=== PATIENT | male | born 1965 | race Caucasian/White ===

== ENCOUNTER 2024-03-05 17:32 | Inpatient (IN) | payer MEDICAID ==
[~2024-03-05] VITALS: Ht 182.9 cm; Wt 90.3 kg
[2024-03-05 17:33] VITALS: BP_SYST 128; PULSE 98; RESP 18; TEMP 98.4; O2SAT 100
[2024-03-05 19:49] LABS: EOSINOPHILS # (AUTO) 0.2 K/uL (0.0-0.4); HEMOGLOBIN 10.2 g/dL (14.0-18.0)
[2024-03-05 19:55] LABS: BASOPHILS # (AUTO) 0.1 K/uL (0.0-0.2); BASOPHILS % (AUTO) 1.7 % (0.0-2.0); EOSINOPHILS % (AUTO) 2.2 % (0.0-4.0); HEMATOCRIT 29.9 % (36-54); LYMPHOCYTES # (AUTO) 1.9 K/uL (1.0-5.5); LYMPHOCYTES % (AUTO) 22.5 % (20.5-51.5); MEAN CORPUSCULAR HEMOGLOBIN 31 pg (27-31); MEAN CORPUSCULAR HGB CONC 34 % (32-36); MEAN CORPUSCULAR VOLUME 91 fL (79.0-98.0); MONOCYTES # (AUTO) 0.8 K/uL (0.0-1.0); MONOCYTES % (AUTO) 9.4 % (1.7-9.3); NEUTROPHILS # (AUTO) 5.4 K/uL (1.8-7.7); NEUTROPHILS % (AUTO) 64.2 % (40.0-70.0); PLATELET COUNT (AUTO) 397 K/uL (130-430); RED CELL DISTRIBUTION WIDTH 14.6 % (9.0-15.0); WHITE BLOOD COUNT (AUTO) 8.5 K/uL (4.8-10.8)
[2024-03-05 19:57] LABS: ALANINE AMINOTRANSFERASE 36 U/L (12-78); ALBUMIN 3.1 g/dL (3.4-4.8); ANION GAP 8 (5-15); ASPARTATE AMINOTRANSFERASE 45 U/L (10-37); CALCIUM 8.8 mg/dL (8.4-11.0); CARBON DIOXIDE 29 mmol/L (23-29); CHLORIDE 97 mmol/L (98-107); CREATININE 0.98 mg/dL (0.55-1.30); GFR AFRICAN AMERICAN 100 mL/min (>90); GFR NON AFRICAN-AMERICAN 83 mL/min (>90); GLUCOSE 119 mg/dL (74-106); SODIUM SERUM 134 mmol/L (136-145); TOTAL BILIRUBIN 1.2 mg/dL (0.0-1.0); UREA NITROGEN, BLOOD 13 mg/dL (8-21)
[2024-03-05 19:59] LABS: BILIRUBIN,DIRECT 0.3 mg/dL (0.0-0.3); LIPASE 43 U/L (16-77)
[2024-03-05 20:23] LABS: BLOOD, URINE NEGATIVE (NEGATIVE); CLARITY/URINE CLEAR (CLEAR); GLUCOSE,URINE NEGATIVE (NEGATIVE); KETONES,URINE NEGATIVE (NEGATIVE); NITRITE, URINE NEGATIVE (NEGATIVE); PROTEIN URINE 1+ (NEGATIVE)
[2024-03-05 20:30] LABS: BILIRUBIN,URINE 1+ (NEGATIVE); COLOR,URINE AMBER (YELLOW); LEUKOCYTE ESTERASE ,URINE NEGATIVE (NEGATIVE); RBC,URINE NONE SEEN /HPF (0-3); WBC,URINE 0-3 /HPF (0-3)
[2024-03-05 20:31] LABS: BACTERIA,URINE FEW /HPF (None Seen); MUCUS,URINE 2+ /LPF (None Seen)
[2024-03-05] MEDS: KETOROLAC TROMETHAMINE 15 MG VIAL IVP ONE (21:14)
[2024-03-05] MEDS: PIPERACILLIN/TAZO 4.5 GM in NS 100 ML IV ONE (23:05)
[2024-03-05] MEDS ORDERED: PIPERACILLIN/TAZOBACTAM 4.5 GM/VIAL (ZOSYN) IV ONE (23:06)
[2024-03-06] MEDS ORDERED: LIDOCAINE 1%, 20 ML MDV 20 ML ONE (06:44)
[2024-03-06] MEDS ORDERED: TRAM50TA2 PO (07:03)
[2024-03-06] MEDS: LIDOCAINE 1% 10 MG/ML, 20 ML MDV INJ ONE (07:17)
[2024-03-06] MEDS: BACITRACIN 1 GM OINT TP ONE (07:18)
[2024-03-06] MEDS ORDERED: ACETAMINOPHEN 325 MG TABLET PO PRN ×2 (08:45→09:30)
[2024-03-06] MEDS ORDERED: SENN8.6T19 PO (09:35)
[2024-03-06] MEDS ORDERED: NEU300 PO (09:35)
[2024-03-06] MEDS ORDERED: SER25 PO (09:35)
[2024-03-06] MEDS ORDERED: MELA5TAB21 PO (09:35)
[2024-03-06] MEDS ORDERED: ACET325T PO (09:35)
[2024-03-06] MEDS ORDERED: FAMO20TA8 PO (09:35)
[2024-03-06 09:58] VITALS: BP_SYST 103; PULSE 89; RESP 18; TEMP 98.7
[2024-03-06] MEDS: MORPHINE 4 MG INJ. 4 MG/ML VIAL IVP PRN (10:47)
[2024-03-06 10:51] VITALS: O2SAT 95
[2024-03-06 15:14] VITALS: BP_SYST 121; PULSE 101; RESP 16; TEMP 97.9; O2SAT 98
[2024-03-06] MEDS: HYDROcodone/ACETAMIN 5-325 MG TAB (NORCO/ VICODIN) PO PRN (15:54)
[2024-03-06 20:00] VITALS: BP_SYST 130; PULSE 64; RESP 18; TEMP 97.2; O2SAT 98
[2024-03-06] MEDS: MELATONIN 5 MG TABLET PO SCH (20:09)
[2024-03-06] MEDS: QUEtiapine FUMARATE 25 MG TABLET PO SCH (20:09)
[2024-03-07] VITALS: BP_SYST 129; PULSE 74; RESP 18; TEMP 97.4; O2SAT 98
[2024-03-07 06:20] LABS: BASOPHILS # (AUTO) 0.1 K/uL (0.0-0.2); BASOPHILS % (AUTO) 1.5 % (0.0-2.0); EOSINOPHILS # (AUTO) 0.4 K/uL (0.0-0.4); EOSINOPHILS % (AUTO) 5.9 % (0.0-4.0); HEMATOCRIT 28.9 % (36-54); HEMOGLOBIN 9.7 g/dL (14.0-18.0); LYMPHOCYTES # (AUTO) 1.5 K/uL (1.0-5.5); LYMPHOCYTES % (AUTO) 24.2 % (20.5-51.5); MEAN CORPUSCULAR HEMOGLOBIN 30 pg (27-31); MEAN CORPUSCULAR HGB CONC 34 % (32-36); MEAN CORPUSCULAR VOLUME 91 fL (79.0-98.0); MONOCYTES # (AUTO) 0.6 K/uL (0.0-1.0); MONOCYTES % (AUTO) 8.8 % (1.7-9.3); NEUTROPHILS # (AUTO) 3.8 K/uL (1.8-7.7); NEUTROPHILS % (AUTO) 59.6 % (40.0-70.0); PLATELET COUNT (AUTO) 323 K/uL (130-430); RED BLOOD CELL COUNT(AUTO) 3.19 MIL/uL (4.2-6.2); RED CELL DISTRIBUTION WIDTH 14.4 % (9.0-15.0); WHITE BLOOD COUNT (AUTO) 6.4 K/uL (4.8-10.8)
[2024-03-07 06:58] LABS: ALBUMIN 2.8 g/dL (3.4-4.8); CALCIUM 8.5 mg/dL (8.4-11.0); CREATININE 0.94 mg/dL (0.55-1.30); POTASSIUM 3.7 mmol/L (3.5-5.1); TOTAL BILIRUBIN 0.8 mg/dL (0.0-1.0); TOTAL PROTEIN, SERUM 6.7 g/dL (6.4-8.3)
[2024-03-07 08:49] VITALS: O2SAT 100
[2024-03-07 08:55] VITALS: BP_SYST 123; PULSE 98; RESP 14; TEMP 97.7; O2SAT 100
[2024-03-07] MEDS ORDERED: HYDR-3927 PO (10:11)
[2024-03-07] MEDS ORDERED: AMOX-423 PO (11:00)
[2024-03-07 11:14] VITALS: BP_SYST 129; PULSE 87; RESP 18; TEMP 99; O2SAT 97
[2024-03-07 13:18] VITALS: BP_SYST 115; PULSE 77; RESP 18; TEMP 98.7; O2SAT 96
[2024-03-07 16:02] VITALS: BP_SYST 130; PULSE 80; RESP 18; TEMP 98.7; O2SAT 96
[2024-03-14] MEDS ORDERED: HYDR-3917 PO (17:14)
== END 2024-03-07 18:04 | disposition home or self-care (01) | DRG 813 ==
LOC: EDBD → SED 17:32 → EDBD 17:32 → SMU 03-06 08:39
PROVIDERS: ADMIT Family Medicine; ATTEND Family Medicine
DX: I97.648 Postprocedural seroma of a circulatory system organ or structure following other circulatory system procedure (principal); E46 Unspecified protein-calorie malnutrition; E87.1 Hypo-osmolality and hyponatremia; I10 Essential (primary) hypertension; D64.9 Anemia, unspecified; K57.30 Diverticulosis of large intestine without perforation or abscess without bleeding; Y83.8 Other surgical procedures as the cause of abnormal reaction of the patient, or of later complication, without mention of misadventure at the time of the procedure; Z79.899 Other long term (current) drug therapy; Z68.27 Body mass index [BMI] 27.0-27.9, adult; Z59.00 Homelessness unspecified
CPT/HCPCS: 36415; 71275; 76604; 80048; 80053; 80076; 81000; 81001; 81015; 83605; 83690; 84484; 85025; 87040; 93005; 96365; 99285; J1885; J2001; J2270; J2543

== ENCOUNTER 2024-03-19 18:47 | Inpatient (IN) | payer MEDICAID ==
[~2024-03-19] VITALS: Ht 182.9 cm; Wt 131.2 kg
[~2024-03-19 18:47] MED LIST: ACET325T PO; AMOX-423 PO; FAMO20TA8 PO; HYDR-3917 PO; HYDR-3927 PO; MELA5TAB21 PO; NEU300 PO; SENN8.6T19 PO; SER25 PO
[2024-03-19 19:44] VITALS: BP_SYST 131; PULSE 133; RESP 22; TEMP 102.8; O2SAT 96
[2024-03-19] MEDS: KETOROLAC TROMETHAMINE 30 MG VIAL IVP ONE ×2 (20:34→22:28)
[2024-03-19] MEDS: ONDANSETRON HCL 4 MG/2 ML VIAL IVP ONE ×2 (20:34→21:36)
[2024-03-19] MEDS: NACL 0.9% 1,000 ML IV ONE (20:35)
[2024-03-19] MEDS: ACETAMINOPHEN 500 MG TABLET PO ONE (20:35)
[2024-03-19 20:38] LABS: BLOOD, URINE NEGATIVE (NEGATIVE); CLARITY/URINE CLEAR (CLEAR); GLUCOSE,URINE NEGATIVE (NEGATIVE); KETONES,URINE 1+ (NEGATIVE); LEUKOCYTE ESTERASE ,URINE NEGATIVE (NEGATIVE); NITRITE, URINE NEGATIVE (NEGATIVE); PROTEIN URINE 2+ (NEGATIVE)
[2024-03-19 20:46] LABS: UROBILINOGEN,URINE >=8 (0.2-1.0)
[2024-03-19 20:47] LABS: BILIRUBIN,URINE 1+ (NEGATIVE); COLOR,URINE AMBER (YELLOW)
[2024-03-19 20:48] LABS: BACTERIA,URINE RARE /HPF (None Seen); MUCUS,URINE None Seen /LPF (None Seen); RBC,URINE NONE SEEN /HPF (0-3); WBC,URINE 0-3 /HPF (0-3)
[2024-03-19 20:52] LABS: HEMOGLOBIN 11.4 g/dL (14.0-18.0)
[2024-03-19 20:59] LABS: MEAN CORPUSCULAR HEMOGLOBIN 29 pg (27-31); MEAN CORPUSCULAR HGB CONC 34 % (32-36); MEAN CORPUSCULAR VOLUME 86 fL (79.0-98.0); PLATELET COUNT (AUTO) 587 K/uL (130-430); RED BLOOD CELL COUNT(AUTO) 3.94 MIL/uL (4.2-6.2); RED CELL DISTRIBUTION WIDTH 15.8 % (9.0-15.0); WHITE BLOOD COUNT (AUTO) 7.9 K/uL (4.8-10.8)
[2024-03-19 21:01] LABS: INR 1.2 (0.80-1.20); PROTHROMBIN TIME 12.2 SECS (9.5-12.5)
[2024-03-19 21:05] LABS: ALANINE AMINOTRANSFERASE 22 U/L (12-78); ALBUMIN 2.5 g/dL (3.4-4.8); ANION GAP 11 (5-15); ASPARTATE AMINOTRANSFERASE 27 U/L (10-37); BILIRUBIN,DIRECT 0.6 mg/dL (0.0-0.3); CARBON DIOXIDE 29 mmol/L (23-29); CHLORIDE 90 mmol/L (98-107); GFR AFRICAN AMERICAN 111 mL/min (>90); GFR NON AFRICAN-AMERICAN 91 mL/min (>90); GLUCOSE 146 mg/dL (74-106); POTASSIUM 4.3 mmol/L (3.5-5.1); SODIUM SERUM 130 mmol/L (136-145); TOTAL PROTEIN, SERUM 8.3 g/dL (6.4-8.3); UREA NITROGEN, BLOOD 9 mg/dL (8-21)
[2024-03-19 21:16] LABS: ANISOCYTOSIS 1+; BAND % (MANUAL) 6 % (0-6); BASOPHILS % (MANUAL) 0 % (0-2); EOSINOPHILS % (MANUAL) 0 % (0-7); LYMPHOCYTES % (MANUAL) 11 % (20-46); MONOCYTES % (MANUAL) 2 % (0-11); PLATELET ESTIMATE INCREASED (ADEQUATE)
[2024-03-19] MEDS: ceFAZolin SODIUM 2 GM in D5W 100 ML IV ONE (21:36)
[2024-03-19] MEDS: VANCOMYCIN HCL 1,000 MG in NS 250 ML IV ONE (21:36)
[2024-03-19] MEDS ORDERED: VANCOMYCIN HCL 1000 MG/VIAL IV ONE (21:36)
[2024-03-19] MEDS ORDERED: ceFAZolin SODIUM 1 GM VIAL ONE (21:37)
[2024-03-19] MEDS ORDERED: ONDANSETRON HCL 4 MG/2 ML VIAL IVP PRN (21:45)
[2024-03-19] MEDS: 0.45% NACL 1,000 ML IV SCH (22:30)
[2024-03-19] MEDS: TEMAZEPAM 7.5 MG CAPSULE PO PRN (23:39)
[2024-03-20] MEDS ORDERED: PIPERACILLIN/TAZOBACTAM 3.375 GM/VIAL (ZOSYN) IV ONE (05:53)
[2024-03-20] MEDS: PIPERACILLIN/TAZO 3.375/DEX-IS 50 ML IV SCH (05:54)
[2024-03-20] MEDS ORDERED: NS 1000 ML IV.SOLN IV ONE (06:13)
[2024-03-20] MEDS ORDERED: ONDANSETRON HCL 4 MG/2 ML VIAL ONE (06:13)
[2024-03-20] MEDS ORDERED: NS IRRIG SOLN 1000 ML IR ONE (06:13)
[2024-03-20] MEDS ORDERED: BUPIVACAINE /PF 0.25% 30 ML VIAL INJ ONE (06:13)
[2024-03-20] MEDS ORDERED: SEVOFLURANE 15 MIN GAS INH ONE (06:13)
[2024-03-20] MEDS ORDERED: PROPOFOL 200MG/ 20ML VIAL (DIPRIVAN) IV ONE (06:13)
[2024-03-20] MEDS: fentaNYL CITRATE/PF 100 MCG/2 ML AMP ONE (06:56)
[2024-03-20] MEDS: MIDAZOLAM HCL 2 MG/2 ML VIAL (VERSED) ONE (06:57)
[2024-03-20] MEDS: KETAMINE HCL IN 0.9 % NACL 50 MG/5 ML SYRINGE ONE (06:57)
[2024-03-20] MEDS ORDERED: NALOXONE HCL 0.4 MG/ML AMP (NARCAN) IVP PRN (10:00)
[2024-03-20] MEDS: ACETAMINOPHEN 325 MG TABLET PO PRN (13:35)
[2024-03-20 13:43] VITALS: BP_SYST 104; PULSE 105; RESP 20; TEMP 98.4
[2024-03-20] MEDS: VANCOMYCIN HCL 1.25 GM/NS 250 ML IV SCH (15:17)
[2024-03-20 15:50] VITALS: O2SAT 95
[2024-03-20] MEDS: MORPHINE 2 MG/ML INJ. SYRINGE IVP PRN (16:08)
[2024-03-20 16:14] VITALS: BP_SYST 102; PULSE 89; RESP 19; TEMP 98.1; O2SAT 95
[2024-03-20] MEDS: LORazepam 2 MG/ML VIAL IVP PRN (18:39)
[2024-03-20 19:00] VITALS: O2SAT 99
[2024-03-20 21:00] VITALS: BP_SYST 114; PULSE 102; RESP 16; TEMP 97.6
[2024-03-21 00:42] VITALS: BP_SYST 106; PULSE 99; RESP 16; TEMP 98.1; O2SAT 99
[2024-03-21 06:54] LABS: ALBUMIN 1.7 g/dL (3.4-4.8); CREATININE 0.76 mg/dL (0.55-1.30); POTASSIUM 3.7 mmol/L (3.5-5.1); TOTAL BILIRUBIN 0.6 mg/dL (0.0-1.0)
[2024-03-21 08:00] VITALS: BP_SYST 119; PULSE 99; RESP 16; TEMP 98.2; O2SAT 96
[2024-03-21] MEDS ORDERED: NALOXONE HCL 0.4 MG/ML AMP (NARCAN) IVP PRN ×2 (11:45)
[2024-03-21 12:35] VITALS: BP_SYST 124; PULSE 93; RESP 18; TEMP 97.9; O2SAT 97
[2024-03-21] MEDS: HYDROmorphone 1 MG/ML INJ. CARTRIDGE IVP PRN (13:44)
[2024-03-21 16:16] VITALS: BP_SYST 115; PULSE 91; RESP 18; TEMP 97.9; O2SAT 95
[2024-03-21] MEDS: HYDROcodone/ACETAMIN 10-325 MG TAB PO PRN (16:37)
[2024-03-21 19:00] VITALS: O2SAT 97
[2024-03-21 20:00] VITALS: BP_SYST 92; PULSE 96; RESP 17; TEMP 97.6; O2SAT 95
[2024-03-22] VITALS (8 sets, daily range): BP systolic 101–136; PULSE 71–101; RESP 16–25; TEMP 97.6–99.3; O2SAT 92–99
[2024-03-22 10:31] LABS: BASOPHILS # (AUTO) 0.1 K/uL (0.0-0.2); EOSINOPHILS # (AUTO) 0.1 K/uL (0.0-0.4); EOSINOPHILS % (AUTO) 1.2 % (0.0-4.0); HEMATOCRIT 29.7 % (36-54); HEMOGLOBIN 9.7 g/dL (14.0-18.0); LYMPHOCYTES # (AUTO) 1.2 K/uL (1.0-5.5); LYMPHOCYTES % (AUTO) 10.6 % (20.5-51.5); MEAN CORPUSCULAR HEMOGLOBIN 28 pg (27-31); MEAN CORPUSCULAR HGB CONC 33 % (32-36); MEAN CORPUSCULAR VOLUME 86 fL (79.0-98.0); MONOCYTES % (AUTO) 9.5 % (1.7-9.3); NEUTROPHILS # (AUTO) 8.4 K/uL (1.8-7.7); NEUTROPHILS % (AUTO) 77.7 % (40.0-70.0); PLATELET COUNT (AUTO) 624 K/uL (130-430); RED BLOOD CELL COUNT(AUTO) 3.44 MIL/uL (4.2-6.2); RED CELL DISTRIBUTION WIDTH 16.3 % (9.0-15.0); WHITE BLOOD COUNT (AUTO) 10.9 K/uL (4.8-10.8)
[2024-03-22 11:01] LABS: CALCIUM 8.3 mg/dL (8.4-11.0); CREATININE 0.73 mg/dL (0.55-1.30); POTASSIUM 4.2 mmol/L (3.5-5.1)
[2024-03-22] MEDS: VANCOMYCIN HCL 1.25 GM/NS 250 ML IV SCH (15:16)
[2024-03-23 00:28] VITALS: BP_SYST 106; PULSE 89; RESP 18; TEMP 99.3; O2SAT 89
[2024-03-23 07:59] VITALS: BP_SYST 136; PULSE 91; RESP 18; TEMP 98; O2SAT 97
[2024-03-23 10:50] VITALS: O2SAT 97
[2024-03-23 12:00] VITALS: BP_SYST 110; PULSE 93; RESP 19; TEMP 98.3; O2SAT 97
[2024-03-23 16:28] VITALS: BP_SYST 126; PULSE 99; RESP 14; TEMP 98.9; O2SAT 97
[2024-03-23 20:00] VITALS: BP_SYST 108; PULSE 98; RESP 18; TEMP 97.7; O2SAT 99
[2024-03-24 00:30] VITALS: BP_SYST 126; PULSE 93; RESP 18; TEMP 97.8; O2SAT 96
[2024-03-24 07:02] LABS: BASOPHILS # (AUTO) 0.1 K/uL (0.0-0.2); BASOPHILS % (AUTO) 0.8 % (0.0-2.0); EOSINOPHILS # (AUTO) 0.2 K/uL (0.0-0.4); EOSINOPHILS % (AUTO) 1.6 % (0.0-4.0); HEMOGLOBIN 9.3 g/dL (14.0-18.0); LYMPHOCYTES # (AUTO) 1.7 K/uL (1.0-5.5); LYMPHOCYTES % (AUTO) 14.1 % (20.5-51.5); MEAN CORPUSCULAR HEMOGLOBIN 28 pg (27-31); MEAN CORPUSCULAR HGB CONC 32 % (32-36); MEAN CORPUSCULAR VOLUME 86 fL (79.0-98.0); MONOCYTES # (AUTO) 1.1 K/uL (0.0-1.0); NEUTROPHILS # (AUTO) 8.9 K/uL (1.8-7.7); NEUTROPHILS % (AUTO) 74.5 % (40.0-70.0); PLATELET COUNT (AUTO) 742 K/uL (130-430); RED BLOOD CELL COUNT(AUTO) 3.37 MIL/uL (4.2-6.2); RED CELL DISTRIBUTION WIDTH 16.7 % (9.0-15.0); WHITE BLOOD COUNT (AUTO) 11.9 K/uL (4.8-10.8)
[2024-03-24 07:14] LABS: CALCIUM 8.6 mg/dL (8.4-11.0); CREATININE 0.73 mg/dL (0.55-1.30); POTASSIUM 4.2 mmol/L (3.5-5.1)
[2024-03-24 08:00] VITALS: O2SAT 97
[2024-03-24 08:45] LABS: VANCOMYCIN,TROUGH 45.6 ug/mL (10.0-20.0)
[2024-03-24] MEDS: BALSAM PERU/CASTOR OIL 56.7 GM OINT...G. TP SCH (08:57)
[2024-03-24 12:44] VITALS: BP_SYST 115; PULSE 91; RESP 18; TEMP 97; O2SAT 95
[2024-03-24 15:32] VITALS: BP_SYST 112; PULSE 111; RESP 17; TEMP 98.2; O2SAT 97
[2024-03-24 16:29] VITALS: BP_SYST 129; PULSE 87; RESP 18; TEMP 98.1; O2SAT 99
[2024-03-24 20:00] VITALS: BP_SYST 125; PULSE 89; RESP 18; TEMP 97.5; O2SAT 98
[2024-03-24] MEDS: HYDROmorphone 1 MG/ML INJ. CARTRIDGE IVP PRN (20:27)
[2024-03-25] VITALS (7 sets, daily range): BP systolic 104–132; PULSE 80–99; RESP 16–20; TEMP 96.8–98; O2SAT 94–97
[2024-03-25 08:37] LABS: BASOPHILS # (AUTO) 0.1 K/uL (0.0-0.2); EOSINOPHILS # (AUTO) 0.2 K/uL (0.0-0.4); EOSINOPHILS % (AUTO) 2.3 % (0.0-4.0); HEMATOCRIT 27.5 % (36-54); LYMPHOCYTES # (AUTO) 1.2 K/uL (1.0-5.5); LYMPHOCYTES % (AUTO) 12.1 % (20.5-51.5); MEAN CORPUSCULAR HEMOGLOBIN 28 pg (27-31); MEAN CORPUSCULAR HGB CONC 33 % (32-36); MEAN CORPUSCULAR VOLUME 86 fL (79.0-98.0); MONOCYTES # (AUTO) 0.8 K/uL (0.0-1.0); MONOCYTES % (AUTO) 8.6 % (1.7-9.3); NEUTROPHILS # (AUTO) 7.5 K/uL (1.8-7.7); PLATELET COUNT (AUTO) 597 K/uL (130-430); WHITE BLOOD COUNT (AUTO) 9.9 K/uL (4.8-10.8)
[2024-03-25 08:56] LABS: CALCIUM 8.3 mg/dL (8.4-11.0); CREATININE 0.77 mg/dL (0.55-1.30)
[2024-03-25] MEDS: NAFCILLIN SODIUM 2 GM in NS 100 ML IV SCH (13:20)
[2024-03-25] MEDS: OXYCODONE/ACETAMINOPHEN *10*mg/325 mg TABLET PO PRN (18:17)
[2024-03-31] MEDS: MELATONIN 5 MG TABLET PO SCH (21:00)
[2024-03-31 22:30] VITALS: BP_SYST 135; PULSE 112; RESP 20; TEMP 98.5; O2SAT 96
[2024-03-31] MEDS: oxyCODONE HCL 5 MG TABLET PO PRN (23:55)
[2024-04-01] VITALS (7 sets, daily range): BP systolic 113–139; PULSE 79–102; RESP 16–25; TEMP 97.8–98.7; O2SAT 91–99
[2024-04-01] MEDS: SENNOSIDES 8.6 MG TABLET PO SCH ×2 (00:18→21:00)
[2024-04-01] MEDS: GABAPENTIN 300 MG CAPSULE PO SCH (00:18)
[2024-04-01] MEDS: methocarbamoL 500 MG TABLET PO SCH (00:18)
[2024-04-01] MEDS: ACETAMINOPHEN 500 MG TABLET PO SCH (00:18)
[2024-04-01 06:23] LABS: ALBUMIN 2.1 g/dL (3.4-4.8); CALCIUM 8.7 mg/dL (8.4-11.0); CREATININE 0.97 mg/dL (0.55-1.30); POTASSIUM 4.5 mmol/L (3.5-5.1); TOTAL BILIRUBIN 0.3 mg/dL (0.0-1.0); TOTAL PROTEIN, SERUM 7.6 g/dL (6.4-8.3)
[2024-04-01 06:24] LABS: BASOPHILS # (AUTO) 0.1 K/uL (0.0-0.2); BASOPHILS % (AUTO) 1.2 % (0.0-2.0); EOSINOPHILS # (AUTO) 0.2 K/uL (0.0-0.4); EOSINOPHILS % (AUTO) 1.6 % (0.0-4.0); HEMATOCRIT 25.6 % (36-54); HEMOGLOBIN 8.4 g/dL (14.0-18.0); LYMPHOCYTES # (AUTO) 1.8 K/uL (1.0-5.5); LYMPHOCYTES % (AUTO) 16.5 % (20.5-51.5); MEAN CORPUSCULAR HEMOGLOBIN 28 pg (27-31); MEAN CORPUSCULAR HGB CONC 33 % (32-36); MEAN CORPUSCULAR VOLUME 85 fL (79.0-98.0); MONOCYTES # (AUTO) 0.9 K/uL (0.0-1.0); MONOCYTES % (AUTO) 7.9 % (1.7-9.3); NEUTROPHILS # (AUTO) 7.8 K/uL (1.8-7.7); NEUTROPHILS % (AUTO) 72.8 % (40.0-70.0); PLATELET COUNT (AUTO) 513 K/uL (130-430); RED BLOOD CELL COUNT(AUTO) 3.01 MIL/uL (4.2-6.2); RED CELL DISTRIBUTION WIDTH 17.4 % (9.0-15.0); WHITE BLOOD COUNT (AUTO) 10.8 K/uL (4.8-10.8)
[2024-04-01] MEDS: ENOXAPARIN SODIUM 40 MG/0.4 ML SYRINGE SUBCUT SCH (08:11)
[2024-04-01] MEDS ORDERED: ONDANSETRON HCL 4 MG/2 ML VIAL IVP PRN (11:00)
[2024-04-01] MEDS ORDERED: ACETAMINOPHEN 325 MG TABLET PO PRN (12:30)
[2024-04-01] MEDS: cefTRIAXone 1 GM in D5W 50 ML IV SCH (13:22)
[2024-04-01] MEDS: LORazepam 2 MG/ML VIAL IVP PRN (13:48)
[2024-04-01] MEDS: NORMAL SALINE 5 ML DISP.SYRIN IVF SCH (13:52)
[2024-04-01] MEDS: FAMOTIDINE 20 MG TABLET PO SCH (21:00)
[2024-04-01] MEDS: VANCOMYCIN HCL 1.25 GM/NS 250 ML IV SCH (23:00)
[2024-04-01 23:04] LABS: INR 1.1 (0.80-1.20); PROTHROMBIN TIME 11.4 SECS (9.5-12.5)
[2024-04-01] MEDS: fentaNYL CITRATE/PF 100 MCG/2 ML AMP ONE (23:15)
[2024-04-01] MEDS ORDERED: WATER FOR IRRIGATION,STERILE 1,000 ML IRRIG.SOLN IR ONE (23:30)
[2024-04-01] MEDS ORDERED: SEVOFLURANE 15 MIN GAS INH ONE (23:30)
[2024-04-01] MEDS ORDERED: PROPOFOL 200MG/ 20ML VIAL (DIPRIVAN) IV ONE (23:30)
[2024-04-01] MEDS ORDERED: ONDANSETRON HCL 4 MG/2 ML VIAL ONE (23:30)
[2024-04-01] MEDS ORDERED: BUPIVACAINE /PF 0.25% 30 ML VIAL INJ ONE (23:30)
[2024-04-01] MEDS ORDERED: NS 1000 ML IV.SOLN IV ONE (23:30)
[2024-04-01] MEDS ORDERED: NS IRRIG SOLN 1000 ML IR ONE (23:30)
[2024-04-01] MEDS ORDERED: METOCLOPRAMIDE HCL 10 MG/2 ML VIAL ONE (23:30)
[2024-04-01] MEDS ORDERED: SUCCINYLCHOLINE CHLORIDE 20 MG/ML(QUELICIN) ONE (23:30)
[2024-04-01 23:47] LABS: BILIRUBIN,URINE NEGATIVE (NEGATIVE); BLOOD, URINE NEGATIVE (NEGATIVE); CLARITY/URINE CLEAR (CLEAR); COLOR,URINE YELLOW (YELLOW); GLUCOSE,URINE NEGATIVE (NEGATIVE); KETONES,URINE NEGATIVE (NEGATIVE); LEUKOCYTE ESTERASE ,URINE NEGATIVE (NEGATIVE); NITRITE, URINE NEGATIVE (NEGATIVE); PROTEIN URINE NEGATIVE (NEGATIVE); UROBILINOGEN,URINE 0.2 (0.2-1.0)
[2024-04-02] MEDS ORDERED: MORPHINE 4 MG INJ. 4 MG/ML VIAL IVP PRN ×2 (00:30)
[2024-04-02] MEDS ORDERED: NALOXONE HCL 0.4 MG/ML AMP (NARCAN) IVP PRN (00:30)
[2024-04-02] MEDS ORDERED: ONDANSETRON HCL 4 MG/2 ML VIAL IVP PRN (00:30)
[2024-04-02] MEDS: QUEtiapine FUMARATE 25 MG TABLET PO SCH (02:00)
[2024-04-02] MEDS: HYDROmorphone 1 MG/ML INJ. CARTRIDGE IVP PRN (03:08)
[2024-04-02 05:30] LABS: BASOPHILS # (AUTO) 0.1 K/uL (0.0-0.2); BASOPHILS % (AUTO) 0.8 % (0.0-2.0); EOSINOPHILS # (AUTO) 0.1 K/uL (0.0-0.4); EOSINOPHILS % (AUTO) 1.2 % (0.0-4.0); HEMATOCRIT 26.3 % (36-54); HEMOGLOBIN 8.5 g/dL (14.0-18.0); LYMPHOCYTES # (AUTO) 1.1 K/uL (1.0-5.5); LYMPHOCYTES % (AUTO) 12.4 % (20.5-51.5); MEAN CORPUSCULAR HEMOGLOBIN 27 pg (27-31); MEAN CORPUSCULAR HGB CONC 32 % (32-36); MEAN CORPUSCULAR VOLUME 84 fL (79.0-98.0); MONOCYTES # (AUTO) 0.9 K/uL (0.0-1.0); MONOCYTES % (AUTO) 10.3 % (1.7-9.3); NEUTROPHILS # (AUTO) 6.5 K/uL (1.8-7.7); NEUTROPHILS % (AUTO) 75.3 % (40.0-70.0); PLATELET COUNT (AUTO) 448 K/uL (130-430); RED BLOOD CELL COUNT(AUTO) 3.12 MIL/uL (4.2-6.2); RED CELL DISTRIBUTION WIDTH 18.1 % (9.0-15.0); WHITE BLOOD COUNT (AUTO) 8.6 K/uL (4.8-10.8)
[2024-04-02 06:26] LABS: CALCIUM 8.5 mg/dL (8.4-11.0); CREATININE 0.83 mg/dL (0.55-1.30); POTASSIUM 4.1 mmol/L (3.5-5.1); TOTAL BILIRUBIN 0.3 mg/dL (0.0-1.0); TOTAL PROTEIN, SERUM 7.3 g/dL (6.4-8.3)
[2024-04-02 08:00] VITALS: BP_SYST 114; PULSE 58; RESP 20; TEMP 98; O2SAT 95
[2024-04-02] MEDS: NAFCILLIN SODIUM 2 GM in NS 100 ML IV SCH (08:26)
[2024-04-02] MEDS: rifAMPin 300 MG CAPSULE PO SCH (08:36)
[2024-04-02 12:54] VITALS: BP_SYST 101; PULSE 104; RESP 20; TEMP 98.5
[2024-04-02 16:29] VITALS: BP_SYST 99; PULSE 108; RESP 20; TEMP 98.9; O2SAT 97
[2024-04-02 19:00] VITALS: O2SAT 95
[2024-04-02 20:00] VITALS: BP_SYST 108; PULSE 110; RESP 20; TEMP 98.8; O2SAT 94
[2024-04-02] MEDS: QUEtiapine FUMARATE 25 MG TABLET ONE (21:19)
[2024-04-02] MEDS: oxyCODONE HCL 5 MG TABLET PO PRN (23:40)
[2024-04-03] VITALS (7 sets, daily range): BP systolic 97–126; PULSE 65–112; RESP 18; TEMP 96.1–98.3; O2SAT 95–100
[2024-04-03 08:25] LABS: BASOPHILS # (AUTO) 0.1 K/uL (0.0-0.2); BASOPHILS % (AUTO) 1.2 % (0.0-2.0); EOSINOPHILS # (AUTO) 0.2 K/uL (0.0-0.4); EOSINOPHILS % (AUTO) 2.6 % (0.0-4.0); HEMATOCRIT 25.7 % (36-54); HEMOGLOBIN 8.1 g/dL (14.0-18.0); LYMPHOCYTES # (AUTO) 1.3 K/uL (1.0-5.5); LYMPHOCYTES % (AUTO) 16.6 % (20.5-51.5); MEAN CORPUSCULAR HEMOGLOBIN 27 pg (27-31); MEAN CORPUSCULAR HGB CONC 32 % (32-36); MEAN CORPUSCULAR VOLUME 85 fL (79.0-98.0); MONOCYTES # (AUTO) 0.8 K/uL (0.0-1.0); MONOCYTES % (AUTO) 9.8 % (1.7-9.3); NEUTROPHILS # (AUTO) 5.6 K/uL (1.8-7.7); NEUTROPHILS % (AUTO) 69.8 % (40.0-70.0); PLATELET COUNT (AUTO) 398 K/uL (130-430); RED BLOOD CELL COUNT(AUTO) 3.04 MIL/uL (4.2-6.2); RED CELL DISTRIBUTION WIDTH 17.9 % (9.0-15.0)
[2024-04-03 08:37] LABS: ERYTHROCYTE SEDIMENTATION RATE 38 MM/HR (0-15)
[2024-04-03 08:38] LABS: CALCIUM 8.3 mg/dL (8.4-11.0); CREATININE 1.44 mg/dL (0.55-1.30); POTASSIUM 4.5 mmol/L (3.5-5.1)
[2024-04-03] MEDS: ENOXAPARIN SODIUM 40 MG/0.4 ML SYRINGE SUBCUT ONE (12:29)
[2024-04-04] VITALS (7 sets, daily range): BP systolic 106–126; PULSE 51–91; RESP 16–18; TEMP 97.8–98.6; O2SAT 94–100
[2024-04-04 06:04] LABS: BASOPHILS # (AUTO) 0.1 K/uL (0.0-0.2); BASOPHILS % (AUTO) 1.3 % (0.0-2.0); EOSINOPHILS # (AUTO) 0.2 K/uL (0.0-0.4); EOSINOPHILS % (AUTO) 2.5 % (0.0-4.0); HEMATOCRIT 24.6 % (36-54); HEMOGLOBIN 7.9 g/dL (14.0-18.0); LYMPHOCYTES # (AUTO) 1.4 K/uL (1.0-5.5); LYMPHOCYTES % (AUTO) 16.5 % (20.5-51.5); MEAN CORPUSCULAR HEMOGLOBIN 27 pg (27-31); MEAN CORPUSCULAR HGB CONC 32 % (32-36); MEAN CORPUSCULAR VOLUME 85 fL (79.0-98.0); MONOCYTES # (AUTO) 0.8 K/uL (0.0-1.0); NEUTROPHILS % (AUTO) 70.7 % (40.0-70.0); PLATELET COUNT (AUTO) 366 K/uL (130-430); RED CELL DISTRIBUTION WIDTH 17.6 % (9.0-15.0); WHITE BLOOD COUNT (AUTO) 8.4 K/uL (4.8-10.8)
[2024-04-04 06:39] LABS: CALCIUM 8.4 mg/dL (8.4-11.0); CREATININE 1.06 mg/dL (0.55-1.30); POTASSIUM 4.3 mmol/L (3.5-5.1)
[2024-04-04 07:40] LABS: ERYTHROCYTE SEDIMENTATION RATE 42 MM/HR (0-15)
[2024-04-04] MEDS: ENOXAPARIN SODIUM 40 MG/0.4 ML SYRINGE SUBCUT SCH (08:37)
[2024-04-05] VITALS: BP_SYST 118; PULSE 78; RESP 18; TEMP 97.6; O2SAT 99
[2024-04-05 07:10] LABS: BASOPHILS # (AUTO) 0.1 K/uL (0.0-0.2); BASOPHILS % (AUTO) 1.3 % (0.0-2.0); EOSINOPHILS # (AUTO) 0.2 K/uL (0.0-0.4); EOSINOPHILS % (AUTO) 2.6 % (0.0-4.0); HEMATOCRIT 25.3 % (36-54); HEMOGLOBIN 8.1 g/dL (14.0-18.0); LYMPHOCYTES # (AUTO) 1.2 K/uL (1.0-5.5); LYMPHOCYTES % (AUTO) 16.5 % (20.5-51.5); MEAN CORPUSCULAR HEMOGLOBIN 27 pg (27-31); MEAN CORPUSCULAR HGB CONC 32 % (32-36); MEAN CORPUSCULAR VOLUME 85 fL (79.0-98.0); MONOCYTES # (AUTO) 0.6 K/uL (0.0-1.0); NEUTROPHILS # (AUTO) 5.2 K/uL (1.8-7.7); NEUTROPHILS % (AUTO) 71.6 % (40.0-70.0); PLATELET COUNT (AUTO) 365 K/uL (130-430); RED BLOOD CELL COUNT(AUTO) 2.99 MIL/uL (4.2-6.2); RED CELL DISTRIBUTION WIDTH 17.2 % (9.0-15.0); WHITE BLOOD COUNT (AUTO) 7.2 K/uL (4.8-10.8)
[2024-04-05 07:23] LABS: ALBUMIN 1.9 g/dL (3.4-4.8); CALCIUM 8.5 mg/dL (8.4-11.0); CREATININE 1.06 mg/dL (0.55-1.30); TOTAL PROTEIN, SERUM 7.2 g/dL (6.4-8.3)
[2024-04-05 07:33] VITALS: BP_SYST 117; RESP 18; TEMP 97.2; O2SAT 95
[2024-04-05 07:49] LABS: ERYTHROCYTE SEDIMENTATION RATE 47 MM/HR (0-15)
[2024-04-05 11:56] VITALS: BP_SYST 118; PULSE 93; RESP 15; TEMP 97.5; O2SAT 95
[2024-04-05 16:12] VITALS: BP_SYST 115; PULSE 92; RESP 15; TEMP 98.2; O2SAT 94
[2024-04-06 00:42] VITALS: BP_SYST 124; PULSE 72; RESP 18; TEMP 98; O2SAT 100
[2024-04-06 06:40] LABS: HEMATOCRIT 25.4 % (36-54); HEMOGLOBIN 8.1 g/dL (14.0-18.0); MEAN CORPUSCULAR HEMOGLOBIN 27 pg (27-31); MEAN CORPUSCULAR HGB CONC 32 % (32-36); MEAN CORPUSCULAR VOLUME 84 fL (79.0-98.0); PLATELET COUNT (AUTO) 387 K/uL (130-430); RED BLOOD CELL COUNT(AUTO) 3.04 MIL/uL (4.2-6.2); RED CELL DISTRIBUTION WIDTH 17.3 % (9.0-15.0); WHITE BLOOD COUNT (AUTO) 7.6 K/uL (4.8-10.8)
[2024-04-06 07:06] LABS: CALCIUM 8.6 mg/dL (8.4-11.0); CREATININE 1.07 mg/dL (0.55-1.30); POTASSIUM 3.8 mmol/L (3.5-5.1)
[2024-04-06 07:57] LABS: ERYTHROCYTE SEDIMENTATION RATE 43 MM/HR (0-15)
[2024-04-06 08:00] VITALS: O2SAT 95
[2024-04-06 08:30] VITALS: BP_SYST 135; PULSE 103; RESP 15; TEMP 97.8
[2024-04-06] MEDS: ACETAMINOPHEN 325 MG TABLET PO PRN (09:06)
[2024-04-06] MEDS: fentaNYL CITRATE/PF 100 MCG/2 ML AMP ONE (10:26)
[2024-04-06] MEDS: MIDAZOLAM HCL 5 MG/5 ML VIAL ONE (10:26)
[2024-04-06 10:29] LABS: BASOPHILS % (MANUAL) 0 % (0-2); EOSINOPHILS % (MANUAL) 1 % (0-7); LYMPHOCYTES % (MANUAL) 16 % (20-46); MONOCYTES % (MANUAL) 8 % (0-11)
[2024-04-06 10:30] LABS: ANISOCYTOSIS 1+; HYPOCHROMASIA SLIGHT; PLATELET ESTIMATE ADEQUATE (ADEQUATE)
[2024-04-06] MEDS ORDERED: LIDOCAINE 1%, 20 ML MDV 20 ML ONE (11:08)
[2024-04-06 18:04] VITALS: BP_SYST 133; PULSE 93; RESP 16; TEMP 97.8; O2SAT 96
[2024-04-06 20:00] VITALS: BP_SYST 138; PULSE 92; RESP 16; TEMP 98.7
[2024-04-07 01:08] VITALS: BP_SYST 131; PULSE 86; RESP 16; TEMP 98.3; O2SAT 98
[2024-04-07 08:10] VITALS: BP_SYST 118; PULSE 90; RESP 16; TEMP 98.8; O2SAT 100
[2024-04-07] MEDS ORDERED: COMMUNICATION ORDER XX PRN (08:30)
[2024-04-07 09:00] VITALS: O2SAT 100
[2024-04-07 11:25] VITALS: BP_SYST 122; PULSE 65; RESP 20; TEMP 97.3; O2SAT 100
[2024-04-07 15:20] VITALS: BP_SYST 107; PULSE 87; RESP 16; TEMP 97.1; O2SAT 96
[2024-04-07 20:00] VITALS: BP_SYST 121; PULSE 99; RESP 20; TEMP 98.6; O2SAT 99
[2024-04-08] VITALS: BP_SYST 144; PULSE 91; RESP 18; TEMP 97.9; O2SAT 99
[2024-04-08 08:00] VITALS: BP_SYST 168; PULSE 96; RESP 18; TEMP 98.2; O2SAT 97
[2024-04-08] MEDS: ALTEPLASE 2 MG VIAL MC SCH (08:12)
[2024-04-08 11:13] VITALS: BP_SYST 105; PULSE 67; RESP 18; TEMP 98.5; O2SAT 98
[2024-04-08 16:28] VITALS: BP_SYST 105; PULSE 69; RESP 18; TEMP 98.4; O2SAT 98
[2024-04-08] MEDS: HYDROmorphone 1 MG/ML INJ. CARTRIDGE IVP ONE (17:04)
[2024-04-08 20:00] VITALS: BP_SYST 109; PULSE 52; RESP 18; TEMP 98.3; O2SAT 96
[2024-04-08] MEDS: NAFCILLIN SODIUM 2 GM in NS 100 ML IV SCH (22:16)
[2024-04-09] VITALS: BP_SYST 122; PULSE 92; RESP 18; TEMP 98.2; O2SAT 97
[2024-04-09 07:00] VITALS: O2SAT 96
[2024-04-09 07:09] LABS: HEMATOCRIT 24.6 % (36-54); HEMOGLOBIN 7.9 g/dL (14.0-18.0); MEAN CORPUSCULAR HEMOGLOBIN 27 pg (27-31); MEAN CORPUSCULAR HGB CONC 32 % (32-36); MEAN CORPUSCULAR VOLUME 84 fL (79.0-98.0); PLATELET COUNT (AUTO) 333 K/uL (130-430); RED BLOOD CELL COUNT(AUTO) 2.93 MIL/uL (4.2-6.2); RED CELL DISTRIBUTION WIDTH 17.6 % (9.0-15.0); WHITE BLOOD COUNT (AUTO) 6.3 K/uL (4.8-10.8)
[2024-04-09 07:41] LABS: CALCIUM 8.7 mg/dL (8.4-11.0); CREATININE 1.01 mg/dL (0.55-1.30); POTASSIUM 3.7 mmol/L (3.5-5.1)
[2024-04-09 08:00] VITALS: BP_SYST 132; PULSE 65; RESP 18; TEMP 98; O2SAT 96
[2024-04-09 11:27] LABS: ANISOCYTOSIS 1+; BASOPHILS % (MANUAL) 0 % (0-2); EOSINOPHILS % (MANUAL) 3 % (0-7); LYMPHOCYTES % (MANUAL) 15 % (20-46); MONOCYTES % (MANUAL) 4 % (0-11); PLATELET ESTIMATE ADEQUATE (ADEQUATE)
[2024-04-09 12:00] VITALS: BP_SYST 127; PULSE 72; RESP 18; TEMP 97.8; O2SAT 96
[2024-04-09 16:00] VITALS: BP_SYST 122; PULSE 77; RESP 20; TEMP 97.5; O2SAT 96
[2024-04-09 20:00] VITALS: BP_SYST 110; PULSE 101; RESP 20; TEMP 98.7; O2SAT 98
[2024-04-10] VITALS: BP_SYST 118; PULSE 92; RESP 18; TEMP 97.8; O2SAT 97
[2024-04-10 08:11] LABS: HEMATOCRIT 25.1 % (36-54); MEAN CORPUSCULAR HEMOGLOBIN 27 pg (27-31); MEAN CORPUSCULAR HGB CONC 32 % (32-36); MEAN CORPUSCULAR VOLUME 85 fL (79.0-98.0); PLATELET COUNT (AUTO) 350 K/uL (130-430); RED BLOOD CELL COUNT(AUTO) 2.96 MIL/uL (4.2-6.2); RED CELL DISTRIBUTION WIDTH 17.6 % (9.0-15.0); WHITE BLOOD COUNT (AUTO) 7.3 K/uL (4.8-10.8)
[2024-04-10 08:22] LABS: CALCIUM 8.8 mg/dL (8.4-11.0); CREATININE 1.04 mg/dL (0.55-1.30); POTASSIUM 3.9 mmol/L (3.5-5.1)
[2024-04-10 08:24] LABS: ERYTHROCYTE SEDIMENTATION RATE 51 MM/HR (0-15)
[2024-04-10 09:01] VITALS: BP_SYST 114; PULSE 87; RESP 17; TEMP 98.7; O2SAT 95
[2024-04-10 10:00] VITALS: O2SAT 96
[2024-04-10 10:39] LABS: BASOPHILS % (MANUAL) 0 % (0-2); EOSINOPHILS % (MANUAL) 2 % (0-7); LYMPHOCYTES % (MANUAL) 16 % (20-46); MONOCYTES % (MANUAL) 11 % (0-11)
[2024-04-10 10:40] LABS: PLATELET ESTIMATE ADEQUATE (ADEQUATE)
[2024-04-10 10:43] LABS: ANISOCYTOSIS 1+; HYPOCHROMASIA SLIGHT
[2024-04-10 11:05] VITALS: BP_SYST 111; PULSE 101; RESP 15; TEMP 96.7; O2SAT 95
[2024-04-10 15:05] VITALS: BP_SYST 130; PULSE 101; RESP 16; TEMP 97.6; O2SAT 98
[2024-04-10] MEDS ORDERED: NALOXONE HCL 0.4 MG/ML AMP (NARCAN) IVP PRN ×2 (16:00)
[2024-04-10] MEDS: HYDROcodone/ACETAMIN 10-325 MG TAB PO PRN (16:49)
[2024-04-10 20:30] VITALS: BP_SYST 132; PULSE 97; RESP 18; TEMP 97.7; O2SAT 99
[2024-04-11 00:15] VITALS: BP_SYST 132; PULSE 90; RESP 18; TEMP 98.1; O2SAT 99
[2024-04-11 08:36] VITALS: BP_SYST 115; PULSE 65; RESP 17; TEMP 97.7; O2SAT 99
[2024-04-11 09:17] LABS: HEMATOCRIT 25.4 % (36-54); HEMOGLOBIN 8.1 g/dL (14.0-18.0); MEAN CORPUSCULAR HEMOGLOBIN 27 pg (27-31); MEAN CORPUSCULAR HGB CONC 32 % (32-36); MEAN CORPUSCULAR VOLUME 85 fL (79.0-98.0); PLATELET COUNT (AUTO) 341 K/uL (130-430); RED BLOOD CELL COUNT(AUTO) 2.98 MIL/uL (4.2-6.2); RED CELL DISTRIBUTION WIDTH 18.2 % (9.0-15.0); WHITE BLOOD COUNT (AUTO) 7.1 K/uL (4.8-10.8)
[2024-04-11 09:24] LABS: ERYTHROCYTE SEDIMENTATION RATE 53 MM/HR (0-15)
[2024-04-11 09:58] LABS: CALCIUM 9.1 mg/dL (8.4-11.0); CREATININE 1.01 mg/dL (0.55-1.30); POTASSIUM 3.6 mmol/L (3.5-5.1)
[2024-04-11 10:00] VITALS: O2SAT 98
[2024-04-11 11:07] VITALS: BP_SYST 119; PULSE 78; RESP 16; TEMP 98.8; O2SAT 95
[2024-04-11 11:46] LABS: BASOPHILS % (MANUAL) 0 % (0-2); EOSINOPHILS % (MANUAL) 9 % (0-7); LYMPHOCYTES % (MANUAL) 20 % (20-46); MONOCYTES % (MANUAL) 11 % (0-11)
[2024-04-11 11:47] LABS: ANISOCYTOSIS 1+; PLATELET ESTIMATE ADEQUATE (ADEQUATE)
[2024-04-11] MEDS: QUEtiapine FUMARATE 25 MG TABLET PO ONE (14:48)
[2024-04-11 15:27] VITALS: BP_SYST 140; PULSE 69; RESP 16; TEMP 97.6; O2SAT 96
[2024-04-11 20:00] VITALS: BP_SYST 124; PULSE 100; RESP 18; TEMP 98.2; O2SAT 99
[2024-04-11] MEDS: QUEtiapine FUMARATE 25 MG TABLET PO SCH (20:20)
[2024-04-12 00:30] VITALS: BP_SYST 103; PULSE 97; RESP 18; TEMP 97.5; O2SAT 98
[2024-04-12 05:52] LABS: BASOPHILS # (AUTO) 0.2 K/uL (0.0-0.2); BASOPHILS % (AUTO) 2.5 % (0.0-2.0); EOSINOPHILS # (AUTO) 0.4 K/uL (0.0-0.4); HEMATOCRIT 27.2 % (36-54); HEMOGLOBIN 8.8 g/dL (14.0-18.0); LYMPHOCYTES # (AUTO) 1.4 K/uL (1.0-5.5); LYMPHOCYTES % (AUTO) 18.6 % (20.5-51.5); MEAN CORPUSCULAR HEMOGLOBIN 27 pg (27-31); MEAN CORPUSCULAR HGB CONC 32 % (32-36); MEAN CORPUSCULAR VOLUME 84 fL (79.0-98.0); MONOCYTES # (AUTO) 0.6 K/uL (0.0-1.0); MONOCYTES % (AUTO) 8.7 % (1.7-9.3); NEUTROPHILS # (AUTO) 4.7 K/uL (1.8-7.7); NEUTROPHILS % (AUTO) 64.2 % (40.0-70.0); PLATELET COUNT (AUTO) 475 K/uL (130-430); RED BLOOD CELL COUNT(AUTO) 3.26 MIL/uL (4.2-6.2); RED CELL DISTRIBUTION WIDTH 17.9 % (9.0-15.0); WHITE BLOOD COUNT (AUTO) 7.4 K/uL (4.8-10.8)
[2024-04-12 06:29] LABS: ALBUMIN 2.5 g/dL (3.4-4.8); CALCIUM 9.4 mg/dL (8.4-11.0); CREATININE 1.08 mg/dL (0.55-1.30); TOTAL BILIRUBIN 0.9 mg/dL (0.0-1.0); TOTAL PROTEIN, SERUM 8.6 g/dL (6.4-8.3)
[2024-04-12 06:35] LABS: ERYTHROCYTE SEDIMENTATION RATE 28 MM/HR (0-15)
[2024-04-12 08:00] VITALS: O2SAT 99
[2024-04-12 11:14] VITALS: BP_SYST 136; PULSE 51; RESP 16; TEMP 98.6; O2SAT 99
[2024-04-12 15:03] VITALS: BP_SYST 127; PULSE 120; RESP 16; TEMP 97.3; O2SAT 96
[2024-04-12 20:00] VITALS: BP_SYST 113; PULSE 94; RESP 18; TEMP 98.2; O2SAT 96
[2024-04-12 20:15] VITALS: O2SAT 96
[2024-04-13 00:30] VITALS: BP_SYST 132; PULSE 105; RESP 16; TEMP 98; O2SAT 95
[2024-04-13] MEDS: HYDROcodone/ACETAMIN 5-325 MG TAB (NORCO/ VICODIN) PO PRN (00:34)
[2024-04-13 07:55] VITALS: BP_SYST 121; PULSE 91; RESP 18; TEMP 98.1; O2SAT 99
[2024-04-13 09:01] VITALS: O2SAT 99
[2024-04-13 11:14] VITALS: BP_SYST 120; PULSE 96; RESP 16; TEMP 96.9; O2SAT 100
[2024-04-13 15:24] VITALS: BP_SYST 106; PULSE 74; RESP 16; TEMP 97.3; O2SAT 93
[2024-04-13 20:00] VITALS: BP_SYST 123; PULSE 93; RESP 16; TEMP 98.4; O2SAT 100; O2SAT 93
[2024-04-13] MEDS ORDERED: LORazepam 2 MG/ML VIAL IVP PRN (23:15)
[2024-04-13] MEDS: LORazepam 2 MG/ML VIAL IVP PRN (23:18)
[2024-04-14] VITALS: BP_SYST 119; PULSE 99; RESP 18; O2SAT 98
[2024-04-14 07:40] VITALS: O2SAT 98
[2024-04-14 08:00] VITALS: BP_SYST 110; PULSE 100; RESP 20; TEMP 98.2; O2SAT 97
[2024-04-14 12:00] VITALS: BP_SYST 138; PULSE 89; RESP 18; TEMP 98.2; O2SAT 99
[2024-04-14 16:00] VITALS: BP_SYST 118; PULSE 78; RESP 18; TEMP 98.2; O2SAT 97
[2024-04-14 20:00] VITALS: BP_SYST 131; PULSE 98; RESP 18; TEMP 98.4; O2SAT 100; O2SAT 98
[2024-04-15 00:30] VITALS: BP_SYST 125; PULSE 95; RESP 18; TEMP 98; O2SAT 99
[2024-04-15 07:55] VITALS: O2SAT 96
[2024-04-15 08:00] VITALS: PULSE 98; RESP 17; TEMP 98.2; O2SAT 99
[2024-04-15] MEDS: ASCORBIC ACID 500 MG TABLET PO ONE (10:57)
[2024-04-15 12:34] VITALS: BP_SYST 112; PULSE 89; RESP 18; TEMP 98.5; O2SAT 100
[2024-04-15 16:40] VITALS: BP_SYST 129; PULSE 98; RESP 20; TEMP 97.5; O2SAT 99
[2024-04-15 17:08] LABS: BASOPHILS # (AUTO) 0.2 K/uL (0.0-0.2); BASOPHILS % (AUTO) 2.6 % (0.0-2.0); EOSINOPHILS # (AUTO) 0.4 K/uL (0.0-0.4); EOSINOPHILS % (AUTO) 6.4 % (0.0-4.0); HEMATOCRIT 24.1 % (36-54); HEMOGLOBIN 8.1 g/dL (14.0-18.0); LYMPHOCYTES # (AUTO) 1.4 K/uL (1.0-5.5); MEAN CORPUSCULAR HEMOGLOBIN 28 pg (27-31); MEAN CORPUSCULAR HGB CONC 33 % (32-36); MEAN CORPUSCULAR VOLUME 83 fL (79.0-98.0); MONOCYTES # (AUTO) 0.7 K/uL (0.0-1.0); MONOCYTES % (AUTO) 10.4 % (1.7-9.3); NEUTROPHILS # (AUTO) 4.2 K/uL (1.8-7.7); NEUTROPHILS % (AUTO) 60.6 % (40.0-70.0); PLATELET COUNT (AUTO) 396 K/uL (130-430); WHITE BLOOD COUNT (AUTO) 6.9 K/uL (4.8-10.8)
[2024-04-15 18:57] VITALS: BP_SYST 124; PULSE 89; RESP 18; TEMP 98; O2SAT 99
[2024-04-15] MEDS: ASCORBIC ACID 500 MG TABLET PO SCH (20:49)
== END 2024-03-25 11:28 | DRG 364 ==
LOC: SED 18:47 → STU 19:00 → UNDOADMIN 21:36 → SMU 21:36 → UNDODISIN 03-25 21:32 → SMU 03-31 20:51 → UNDOADMIN 03-31 20:51 → SMU 03-31 21:20 → STU 03-31 21:59 → SMU 04-07 14:10 → UNDODISIN 04-15 21:10
PROVIDERS: ADMIT Preventive Medicine Preventive Medicine/Occupational Environmental Medicine; ATTEND Specialist
PROC: 0J960ZZ Drainage of Chest Subcutaneous Tissue and Fascia, Open Approach (ICD-10-PCS; 2024-03-20)
PROC: 0J970ZZ Drainage of Back Subcutaneous Tissue and Fascia, Open Approach (ICD-10-PCS; 2024-03-20)
PROC: 0JB70ZZ Excision of Back Subcutaneous Tissue and Fascia, Open Approach (ICD-10-PCS; principal; 2024-03-20 07:11)
DX: L02.212 Cutaneous abscess of back [any part, except buttock and flank] (principal); S22.039A Unspecified fracture of third thoracic vertebra, initial encounter for closed fracture; E43 Unspecified severe protein-calorie malnutrition; D64.9 Anemia, unspecified; Z20.822 Contact with and (suspected) exposure to COVID-19; D75.839 Thrombocytosis, unspecified; V89.2XXA Person injured in unspecified motor-vehicle accident, traffic, initial encounter; Y93.89 Activity, other specified; Y92.89 Other specified places as the place of occurrence of the external cause; Y99.8 Other external cause status; Z79.899 Other long term (current) drug therapy; L02.213 Cutaneous abscess of chest wall; B95.61 Methicillin susceptible Staphylococcus aureus infection as the cause of diseases classified elsewhere; Z68.39 Body mass index [BMI] 39.0-39.9, adult; E83.51 Hypocalcemia; M72.9 Fibroblastic disorder, unspecified
CPT/HCPCS: 36415; 71045; 71250-TC; 72128; 77012; 80048; 80053; 80076; 80202; 81000; 81001; 81003; 81015; 82042; 82948; 83605; 84157; 84484; 85007; 85025; 85027; 85610; 85651; 85730; 86886; 86900; 86901; 87040; 87070; 87075; 87081; 87086; 87186; 88304; 93005; 96365; 97110-GP; 97116-GP; 97530-GP; 99285; C1729; C1769; G0378; J0330; J0690; J0696; J1170; J1650; J1885; J2001; J2060; J2250; J2270; J2405; J2543; J2704; J2765; J2997; J3010; J3370; J3490; J7030; J7060

== ENCOUNTER 2024-03-31 22:44 | Inpatient (IN) | payer MEDICAID ==
[~2024-03-31 22:44] MED LIST changes: -AMOX-423 PO; -HYDR-3917 PO; -HYDR-3927 PO
[2024-04-12] MEDS ORDERED: [UNRECOGNIZED DRUG - CODE] PO (14:10)
== END 2024-04-15 12:00 | DRG 721 ==
LOC: STU 22:44
PROVIDERS: ADMIT Preventive Medicine Preventive Medicine/Occupational Environmental Medicine; ATTEND Preventive Medicine Preventive Medicine/Occupational Environmental Medicine
PROC: 0JB70ZZ Excision of Back Subcutaneous Tissue and Fascia, Open Approach (ICD-10-PCS; principal; 2024-04-01)
PROC: 0W993ZZ Drainage of Right Pleural Cavity, Percutaneous Approach (ICD-10-PCS; 2024-04-06)
PROC: 05HY33Z Insertion of Infusion Device into Upper Vein, Percutaneous Approach (ICD-10-PCS; 2024-04-06)
PROC: 05HY33Z Insertion of Infusion Device into Upper Vein, Percutaneous Approach (ICD-10-PCS; 2024-04-12)
PROC: B54MZZA Ultrasonography of Right Upper Extremity Veins, Guidance (ICD-10-PCS; 2024-04-12)
DX: T81.49XA Infection following a procedure, other surgical site, initial encounter (principal); J86.9 Pyothorax without fistula; J90 Pleural effusion, not elsewhere classified; E44.0 Moderate protein-calorie malnutrition; E88.09 Other disorders of plasma-protein metabolism, not elsewhere classified; M86.8X8 Other osteomyelitis, other site; T84.69XA Infection and inflammatory reaction due to internal fixation device of other site, initial encounter; L02.212 Cutaneous abscess of back [any part, except buttock and flank]; I10 Essential (primary) hypertension; J44.9 Chronic obstructive pulmonary disease, unspecified; Y83.8 Other surgical procedures as the cause of abnormal reaction of the patient, or of later complication, without mention of misadventure at the time of the procedure; D64.9 Anemia, unspecified; F17.200 Nicotine dependence, unspecified, uncomplicated; D75.839 Thrombocytosis, unspecified; F10.10 Alcohol abuse, uncomplicated; Z22.321 Carrier or suspected carrier of Methicillin susceptible Staphylococcus aureus; Z79.899 Other long term (current) drug therapy; Z59.00 Homelessness unspecified; Z68.39 Body mass index [BMI] 39.0-39.9, adult
CPT/HCPCS: 36415; 71045; 71250-TC; 77012; 80048; 80053; 80202; 81001; 81003; 82042; 82948; 84157; 85007; 85025; 85027; 85610; 85651; 85730; 86886; 86900; 86901; 87070; 87075; 87081; 87186; 93005; 97116-GP; C1729; C1769; G0378; J0330; J0696; J1170; J1650; J2001; J2060; J2250; J2405; J2704; J2765; J2997; J3010; J3370; J3490; J7030; J7060